=== PATIENT | male | born 2000 | race Two or more races ===

== ENCOUNTER 2020-11-11 02:35 | Emergency (ER) | payer SELFPAY ==
[~2020-11-11] VITALS: Ht 180.3 cm; Wt 117.9 kg
[~2020-11-11 02:35] MED LIST: HYDR1TAB94 PO; IBUP600 PO; Norco 5-325 Ta1 EACH PO
[2020-11-11] MEDS ORDERED: Prednisone50 MG PO (05:22)
== END 2020-11-11 05:40 | disposition home or self-care (01) ==
LOC: ER 02:35
DX: T78.1XXA Other adverse food reactions, not elsewhere classified, initial encounter (principal); L50.0 Allergic urticaria
CPT/HCPCS: 96374; 96375; 99283-25; J1200; J2930

== ENCOUNTER 2024-08-20 20:45 | Emergency (ER) | payer SELFPAY ==
[~2024-08-20] VITALS: Ht 182.9 cm; Wt 95.2 kg
[~2024-08-20 20:45] MED LIST changes: +Prednisone50 MG PO
[2024-08-20 20:52] VITALS: BP 140/81
[2024-08-20] MEDS ORDERED: Tetanus,Diphtheria Toxd Ped/Pf 0.5 ML VIAL IM ONE (22:30)
[2024-08-20] MEDS ORDERED: Diphth,Pertuss(Acell),Tet Vac 0.5 ML VIAL IM ONE ×2 (22:35→23:20)
== END 2024-08-20 22:40 | disposition home or self-care (01) ==
LOC: ER 20:45
DX: S61.012A Laceration without foreign body of left thumb without damage to nail, initial encounter (principal); Z23 Encounter for immunization; Z79.899 Other long term (current) drug therapy; W26.8XXA Contact with other sharp object(s), not elsewhere classified, initial encounter
CPT/HCPCS: 90702; 90715; 99282